=== PATIENT | female | born 1950 | race Caucasian/White ===

== ENCOUNTER 2024-09-04 14:52 | Outpatient (AMB) | payer OTHER, SELFPAY ==
--- NOTE | 2024-09-04 15:12 | A.OFFPC_ITS ---
Vital Signs 09/04/24 15:18 Height 5 ft 4 in Weight 168 lb BMI 28.8 BP 112/72 Blood Pressure Location Lt brachial Position Sitting Intake Visit Reasons: New Patient Healthcare Liaison Required: No Accompanied by: daughter in law Allergies No Known Allergies Allergy (Verified 09/04/24 15:48) Medication List - Last Reconciled 09/04/24 by Samaria Castaneda MD aspirin (Adult Low Dose Aspirin) 81 mg PO DAILY levothyroxine mcg PO meclizine 25 mg PO DAILY PRN paroxetine HCl ER mg PO DAILY simvastatin mg PO valsartan-hydrochlorothiazide 80-12.5 mg tabs PO DAILY Tobacco use date assessed: 09/04/24 Fall risk assessment: 1 Fall in past year Last assessed Fall Risk: 09/04/24 Dental Screening Dental Screen Date: 09/04/24 Did you have a dental visit in the last 12 months?: No Did you have a dental problem in the last 6 months where you did not have access to dental care?: No Was dental information given to patient?: Patient has dentist HPI HPI Comments History of Present Illness Details The patient is a 74-year-old female presenting for the evaluation of suspected skin cancer and routine health maintenance. She previously received treatment in [place] for a skin lesion that required burning. Recent symptoms include a new lesion growth on her nose, indicating a possible recurrence of skin cancer. She has a medical history significant for essential hypertension, managed with valsartan and hydrochlorothiazide; hyperlipidemia, treated with simvastatin; and hypothyroidism. Additionally, she experiences vertigo and depression with anxiety, managed with meclizine and paroxetine, respectively. [facility] Medical History (Updated 09/04/24 @ 16:01 by Samaria Castaneda MD) History of skin cancer Surgical History History of hysterectomy Family History Mother Diabetes Hypertension Father Hypertension Diabetes Sister Lung cancer Social History Housing: Apartment Alcohol intake: never Patient Tobacco Use Status: Former Tobacco user Tobacco use type: Cigarette e-Cigarette/Vaping Use: Never Used Second Hand Smoke Exposure: No service: No Current occupational status: unemployed Cognitive needs: No Hearing needs: No Vision needs: Yes Questionnaire PHQ-9 Over the last 2 weeks, how often have you been bothered by any of the following problems? 1. Little interest or pleasure in doing things: several days 2. Feeling down, depressed, or hopeless: not at all 3. Trouble falling or staying asleep, or sleeping too much: more than half the days 4. Feeling tired or having little energy: several days 5. Poor appetite or overeating: several days 6. Feeling bad about yourself - or that you are a failure or have let yourself or your family down: not at all 7. Trouble concentrating on things, such as reading the newspaper or watching television: more than half the days 8. Moving or speaking so slowly that other people could have noticed. Or the opposite - being so fidgety or restless that you have been moving around a lot more than usual: not at all 9. Thoughts that you would be better off or of hurting yourself in some way: not at all Total score: 7 Depression Screening Interpretation: Positive Depression Screening Follow-up: Existing condition, In treatment, Community Mental Health Worker F/U and Follow- up Visit Requested Depression Screening Done: Yes 19289 - PHQ-9 Billing: Yes Source: Developed by Drs. Dameon Vera, Marcia Sarabia, Paul Rushing and colleagues, with an educational pepper from [employer]. Thrive Questionnaire Date Thrive assessed: 09/02/24 I am a: Patient What is your living situation today?: I have a steady place to live Within the past 12 months, did the food you bought not last and you didn't have the money to get more?: Often true Within the past 12 months, did you worry whether your food would run out before you got money to buy more?: Often true Do you have trouble paying for medicines?: Yes Do you have trouble getting transportation to medical appointments?: No Do you have trouble paying your heating and electricity bill?: Yes Do you have trouble taking care of your child, family member or friend?: No Do you have trouble with day-to-day activities such as bathing, preparing meals, shopping, managing finances, etc.?: No Are you currently unemployed and looking for a job?: No Are you interested in more education?: No Please select the resources that you would like help with: Housing/Fpc, Food, Paying for medicine, Care for elder or disabled and Daily support Currently or been in a relationship where the following occur: No concerns reported THRIVE Score: 3 AUDIT C Alcohol Use Questionnaire (AUDIT-C) 1. How often do you have a drink containing alcohol?: Monthly or less 2. How many drinks containing alcohol do you have on a typical day when you are drinking?: 1 or 2 3. How often do you have six or more drinks on one occasion?: Never Total Score: 1 Score Reviewed/Action Taken: No BILL-7 AMB Questionnaire BILL-7 Date BILL - 7 assessed: 09/04/24 Feeling nervous, anxious, or on edge: 1 = Several days Not being able to stop or control worryin = Several days Worrying too much about different things: 1 = Several days Trouble relaxin = Several days Being so restless that it is hard to sit still: 0 = Not at all Becoming easily annoyed or irritable: 0 = Not at all Feeling afraid as if something awful might happen: 0 = Not at all Total BILL-7 score (0-4 normal; 5-9 mild; 10-14 moderate; 15-21 severe): 4 Source: Developed by Drs. Dameon Vera, Marcia Sarabia, Paul Rushing and colleagues, with an educational pepper from [employer] BILL-7 Assessment Billing BILL-7 Assessment Tool: BILL-7 Assessment 05575 Review of Systems Const All systems reviewed & are unremarkable except as noted in HPI and below Card Denies chest pain at rest, Denies chest pain with activity, Denies edema, Denies irregular heart rhythm, Denies claudication, Denies dyspnea, Denies dyspnea on exertion, Denies orthopnea, Denies paroxysmal nocturnal dyspnea and Denies slow heart rate Resp Denies cough, Denies dyspnea and Denies dyspnea on exertion Physical exam (Primary Care) Vital Signs: Last Vital Signs BP 112/72 09/04/24 15:18 BMI result Body Mass Index 28.8 Tobacco/Smoking Status: Tobacco use Status Tobacco use date assessed 09/04/24 09/04/24 15:27 Patient Tobacco Use Status Former Tobacco user 03/17/25 15:27 Tobacco use type Cigarette 09/04/24 15:27 e-Cigarette/Vaping Use Never Used 09/04/24 15:27 PHQ-9: PHQ-9 Score PHQ-9: Total score 7 09/04/24 16:06 Depression Screening Interpretation: Positive Depression Screening Follow-up: Existing condition, In treatment, Community Mental Health Worker F/U and Follow- up Visit Requested Thrive Assessment: Date of Thrive Assessment Date Thrive assessed 09/02/24 09/04/24 15:14 Currently or been in a relationship where the following occur: No concerns reported Resp Effort & Inspection: normal respiratory effort Auscultation: clear to auscultation bilaterally Cardio Jugular venous distension: no JVD Rate: regular rate Rhythm: regular rhythm Heart sounds: S1 normal heart sound present and S2 normal heart sound present Skin General skin exam: no rashes or lesions noted Extrem General: Yes full ROM Immunizations pneumoc 20-gallo conj-dip cr(PF) 0.5 mL IM syringe Performing Provider: Samaria Castaneda MD [facility] Administered by: YANELI Zuñiga on 09/04/24 16:06 Dose Route Admin Location Dispensed Lot Number Expiration Date AZC Ward Secretary 0.5 mL IM Left Deltoid 0.5 mL [id number] 10/19/25 [employer] VIS Given Date VIS Provided VIS Publication Date 09/04/24 Single Vaccine 21 Eligibility Eligibility Date Funding Source Not [facility] Eligible 09/04/24 Private Coding Level of Care Code New Pt Level 4 (10464) Complex EM visit Add On G2211 Diagnoses Mild recurrent major depression F33.0 Pure hypercholesterolemia E78.00 BPPV (benign paroxysmal positional vertigo) H81.10 History of skin cancer Z85.828 Hypothyroidism E03.9 Essential hypertension I10 Additional Codes BILL-7 Assessment Billing - BILL-7 Assessment Tool: BILL-7 Assessment 23107 ([id number]) PHQ-9 - 18472 - PHQ-9 Billing: Yes ([id number]) Time Spent (min) 23 Assessment & Plan Assessment & Plan (1) Mild recurrent major depression: Code(s): F33.0 - Major depressive disorder, recurrent, mild Category: Medical (2) Pure hypercholesterolemia: Code(s): E78.00 - Pure hypercholesterolemia, unspecified Category: Medical (3) BPPV (benign paroxysmal positional vertigo): Code(s): H81.10 - Benign paroxysmal vertigo, unspecified ear Category: Medical (4) History of skin cancer: Code(s): Z85.828 - Personal history of other malignant neoplasm of skin Category: Medical (5) Hypothyroidism: Code(s): E03.9 - Hypothyroidism, unspecified Category: Medical (6) Essential hypertension: Code(s): I10 - Essential (primary) hypertension Category: Medical Plan The patient is referred to dermatology to assess a suspected recurrent lesion on her nose previously treated for skin cancer. Chronic conditions such as essential hypertension, hyperlipidemia, and hypothyroidism will be continually managed with her existing medications. A series of fasting laboratory tests, including glucose and cholesterol levels, will monitor these conditions' status, allowing timely adjustment of therapy. Patient was informed and verbally consented to the use of an ambient scribe for clinic note documentation during this visit. I discussed the importance of seeing dermatology for the nasal lesion, emphasizing the necessity of ruling out a recurrence of skin cancer. I explained the need for fasting laboratory tests to assess current chronic conditions, emphasizing monitoring to guide medication adjustments. We reviewed the familial risk for diabetes and the patient's proactive blood sugar monitoring. The importance of maintaining medication adherence and regular health evaluations was reiterated. Orders: Orders Lipid Panel Today E78.5 - Hyperlipidemia, unspecified Comprehensive Met. Panel Today I10 - Essential (primary) hypertension Thyroid Stimulating Hormone Today E03.9 - Hypothyroidism, unspecified MM tomosynthesis screening BI Today Z12.31 - Encounter for screening mammogram for malignant neoplasm of breast XR DEXA axial skeleton Today Z78.0 - Asymptomatic menopausal state Pneumococcal 20 Immunization Today Z23 - Encounter for immunization Referrals Dermatology Referral Z85.828 - Personal history of other malignant neoplasm of skin Medications: New meclizine 25 mg PO DAILY PRN 90 tabs 0RF dizziness 90 days H81.10 - Benign paroxysmal vertigo, unspecified ear simvastatin 20 mg PO BEDTIME 90 tabs 1RF 90 days E78.00 - Pure hypercholesterolemia, unspecified aspirin (Adult Low Dose Aspirin) 81 mg PO DAILY 90 tabs 3RF 90 days levothyroxine 100 mcg PO DAILY 90 tabs 1RF 90 days paroxetine HCl ER 25 mg PO DAILY 90 tabs 1RF 90 days F33.0 - Major depressive disorder, recurrent, mild valsartan-hydrochlorothiazide 80-12.5 mg 1 tab PO DAILY 90 tabs 1RF 90 days Patient Instructions: - Follow up with dermatology for a comprehensive skin evaluation. - Have fasting lab tests as ordered to check cholesterol, glucose levels, and other organ functions. - Continue prescribed medications for hypertension, cholesterol, and hypothyroidism. - Monitor blood sugars regularly and report significant changes. - Arrange for a mammogram and bone density test as planned. - If any new symptoms or concerns arise before the next scheduled visit, reach out for an appointment.
[2024-09-04 15:18] VITALS: BP 112/72; BMI 28.8
--- OUTSIDE RECORDS SUMMARY | 2024-09-04 17:26 | XMS_ITS ---
Author Organization [facility] Address [address] [place] [address] Care Team Providers Care Groover And Striper Operator Name Role Phone [phone] REASON FOR VISIT f/up labs Medications Medication SIG (Take, Route, Fr equency, Duration) Notes Start Date End Date Status Simvastatin Unknown CVS Vitamin D3 Unkno wn Levothyroxine Sodium Unknown Diovan HCT Unknown Alendronate Sodium U nknown Encounters Encounter Location Date Provider Diagnosis [facility] [address] [place] [address] 12/13/2023 [facility] Plan Of Treatment No Information Progress Notes * AUGUSTAZOEFabricioisDOB:12/1949 (74 yo F)Acc No.[id number]:12/13/2023 Progress Notes Patient:?Yusra FERNANDEZ s Provider:?RAC[facility] :1950???Age:73 Y???Sex:Female D ate:12/13/2023 Phone: Address:[address] [place] [phone] Subjective: * Chief Complaints: * ???1. F/up labs. * Medical History:? * Medications:?Unknown Simvast atin , Unknown CVS Vitamin D3 , Unknown Levothyroxine Sodium , Unknown Diovan HCT , Unknown Alendronate Sodium Objective: * Vitals:? Assessment: Plan: * Treatment: * Billing Information: * Visit Code:? * Procedure Codes:? * Electronic signature of [facility] on 09/04/2024 at 05:26 PM EDT Sign off status: Pending * Provider:?[facility] Date:?0 12/13/2023 Generated for Baldemar breen/Simeon/Marilynitting on:?09/04/2024 05:26 PM EDT
--- OUTSIDE RECORDS SUMMARY | 2024-09-04 17:27 | XMS_ITS | Patient Health Record ---
Author Organization [facility] Address [address] [place] [address] Care Team Providers Care Vp Biology Name Role Phone [facility] Unavailable [phone] JESSE VELA Unavailable [phone] Allergies No Known Allergies Reason For Referral Reason Evaluate and treat Diagnosis 1 Hypertension, unspec ified type (I10) Referral Organization [facility] Prac yvonne Referring Provider First Name [facility] Referring Provider Last Name [facility] Referring Provider Speciality Multispeci alty Clinic or Group Practice Referred Provider Specialty Family Pract ice Referral Priority Routine Referral Appointment Date 11/29/2023 Medications Medication SIG (Take, Route, Frequency, Duration) Notes Start Date End Date Status Simvastatin Unknown [facility] Vitamin D3 Unkno wn Valsartan-hydroCHLOROthiazi de 80-12.5 MG 1 tablet Orally Once a day for 30 days 12/02/2023 Active Levothyroxine Sodium Unknown Diovan HCT Unknown Alendronate Sodium U nknown Social History Tobacco Use: Social History Observation Description Date Details (start date - stop date) Former Smoker NA - NA Tobacco Control (Standard) Question Answer Notes Tobacco use: Former smoker Problems Problem Type SNOMED Code ICD Code Onset Dates Problem Status W/U Status Risk Notes Problem [id number] Hypertension, unspecified type (I10) Active confirmed Vital Signs Height 63 in 11/29/2023 Patient Reported High Blood Presure Patient Reported Normal Temperature Weight 162 lbs 11/29/2023 Patient Reported High Blood Presure Patient Reported Normal Temperature BMI 28.69 kg/m2 11/29/2023 Patient Reported High Blood Presure Patient Reported Normal Temperature Encounters Encounter Location Date Provider Diagnosis [facility] [address] [place] [address] 11/29/2023 JESSE VELA Hypertension, unspecified type I10 and Medication refill Z76.0 [facility] [address] [place] [address] 12/02/2023 JESSE VELA Assessments Encounter Date Diagnosis (ICD Code) Assessment Notes Treatment Notes Treatment Clinical Notes Section Notes 11/29/2023 Medication refill (ICD-10 - Z76.0) 11/29/2023 Hypertension, unspecified type (ICD-10 - I10) TREATMENT PLAN: MEDICATION DENIED UNABLE TO LOCATE RECORDS Your medication refill request has been denied as we couldn't find documentation confirming your current usage of this medication. To expedite approval, please provide documentation from your prescribing physician outlining your need, supporting test results, and the pharmacy details. Once received, we can provide a limited supply until you're able to consult your regular physician.PATIENT EDUCATION: HYPERTENSION It's normal for blood pressure to go up and down throughout the day. But if it stays up, you have high blood pressure. Another name for high blood pressure is hypertension. For diagnosis, the top number may be 130 to 140 or higher. The bottom number may be 80 to 90 or higher. Despite what a lot of people think, high blood pressure usually doesn't cause headaches or make you feel dizzy or lightheaded. It usually has no symptoms. But it does increase your risk of stroke, heart attack, and other problems. You and your doctor will talk about your risks of these problems based on your blood pressure. Your doctor will give you a goal for your blood pressure. Your goal will be based on your health and your age. Lifestyle changes, such as eating healthy and being active, are always important to help lower blood pressure. You might also take medicine to reach your blood pressure goal. Follow-up care is a lyon part of your treatment and safety. Be sure to make and go to all appointments, and call your doctor if you are having problems. It's also a good idea to know your test results and keep a list of the medicines you take. How can you care for yourself at home? Medical treatment If you stop taking your medicine, your blood pressure will go back up. You may take one or more types of medicine to lower your blood pressure. Be safe with medicines. Take your medicine exactly as prescribed. Call your doctor if you think you are having a problem with your medicine. Talk to your doctor before you start taking aspirin every day. Aspirin can help certain people lower their risk of a heart attack or stroke. But taking aspirin isn't right for everyone, because it can cause serious bleeding. See your doctor regularly. You may need to see the doctor more often at first or until your blood pressure comes down. If you are taking blood pressure medicine, talk to your doctor before you take decongestants or anti-inflammatory medicine, such as ibuprofen. Some of these medicines can raise blood pressure. Learn how to check your blood pressure at home. Lifestyle changes Stay at a healthy weight. This is especially important if you put on weight around the waist. Losing even 10 pounds can help you lower your blood pressure. If your doctor recommends it, get more exercise. Walking is a good choice. Bit by bit, increase the amount you walk every day. Try for at least 30 minutes on most days of the week. You also may want to swim, bike, or do other activities. Avoid or limit alcohol. Talk to your doctor about whether you can drink any alcohol. Try to limit how much sodium you eat to less than 2,300 milligrams (mg) a day. Your doctor may ask you to try to eat less than 1,500 mg a day. Eat plenty of fruits (such as bananas and oranges), vegetables, legumes, whole grains, and low-fat dairy products. Lower the amount of saturated fat in your diet. Saturated fat is found in animal products such as milk, cheese, and meat. Limiting these foods may help you lose weight and also lower your risk for heart disease. Do not smoke. Smoking increases your risk for heart attack and stroke. If you need help quitting, talk to your doctor about stop-smoking programs and medicines. These can increase your chances of quitting for good. When should you call for help? Call 911 anytime you think you may need emergency care. This may mean having symptoms that suggest that your blood pressure is causing a serious heart or blood vessel problem. Your blood pressure may be over 180/120. For example, call 911 if: You have symptoms of a heart attack. These may include: Chest pain or pressure, or a strange feeling in the chest. Sweating. Shortness of breath. Nausea or vomiting. Pain, pressure, or a strange feeling in the back, neck, jaw, or upper belly or in one or both shoulders or arms. Lightheadedness or sudden weakness. A fast or irregular heartbeat. You have symptoms of a stroke. These may include: Sudden numbness, tingling, weakness, or loss of movement in your face, arm, or leg, especially on only one side of your body. Sudden vision changes. Sudden trouble speaking. Sudden confusion or trouble understanding simple statements. Sudden problems with walking or balance. A sudden, severe headache that is different from past headaches. You have severe back or belly pain. Do not wait until your blood pressure comes down on its own. Get help right away. Call your doctor now or seek immediate care if: Your blood pressure is much higher than normal (such as 180/120 or higher), but you don't have symptoms. You think high blood pressure is causing symptoms, such as: Severe headache. Blurry vision. Watch closely for changes in your health, and be sure to contact your doctor if: Your blood pressure measures higher than your doctor recommends at least 2 times. That means the top number is higher or the bottom number is higher, or both. You think you may be having side effects from your blood pressure medicine. 11/29/2023 Other Follow the treatment plan as indicated by the provider. Take any medications as prescribed. If you have any questions about your prescription, ask the pharmacist. Call 911 anytime you think you may need emergency care. For example, call if:You have severe trouble breathing.You have a seizure.Call your doctor now or seek immediate medical care if:You have trouble breathing.You have a fever with a stiff neck or a severe headache.You have pain or pressure in your chest or belly.You have a fever or cough that returns after getting better.You feel very sleepy, dizzy, or confused.You are not urinating.You have severe muscle pain.You have severe weakness, or you are unsteady.You have medical conditions that are getting worse.Watch closely for changes in your health, and be sure to contact your doctor if:You do not get better as expected.You are having a problem with your medicine. You participated in a Fasttrack Rx request, considered an asynchronous visit where you provide your symptoms and medical history, and a treatment plan is formulated based on your submission. A treatment plan and patient education were provided based on your submission. If symptoms persist or worsen, you should seek in-person care or call 911 immediately for further evaluation. Plan Of Treatment Pending Test Test Name Order Date COMPREHENSIVE METABOLIC PANEL (06733) CBC (INCLUDES DIFF/PLT) (6399) HEMOGLOBIN A1c (496) 11/29/2023 HCG, TOTAL, QL (8435) 11/29/2023 LIPID PANEL, STANDARD ([id number]) 11/29/2023 Insurance Providers Payer Name Payer Address Payer Phone Subscriber Number Group Number Insured Name Patient Relationship to Insured Coverage Start Date Coverage End Date [employer] F[employer] [address] [address] [place] [phone] [id number] Jazmine Fritz Self - patient is the insured Medical (General) History Medical History History ICD Code High blood pressure Last year Thyroid 5 years Osteoporosis 3 years
--- OUTSIDE RECORDS SUMMARY | 2024-09-04 17:27 | XMS_ITS ---
Author Organization [facility] Address [address] [place] [address] Care Team Providers Care Public Health Microbiologist Name Role Phone JESSE VELA [phone] Allergies No Known Allergies Reason For Referral Reason Evaluate and treat Diagnosis 1 Hypertension, unspec ified type (I10) Referral Organization [facility] Prac yvonne Referring Provider First Name [facility] Referring Provider Last Name [facility] Referring Provider Speciality Multispeci alty Clinic or Group Practice Referred Provider Specialty Family Pract ice Referral Priority Routine Referral Appointment Date 11/29/2023 REASON FOR VISIT Prescription Refill, Patient requesting service from promotional campaign rx_refill Medications Medication SIG (Take, Route, Fr equency, Duration) Notes Start Date End Date Status Alendronate Sodium A ctive Levothyroxine Sodium Active Diovan HCT Active Simvastatin Active [facility] Vitamin D3 Activ e Social History Tobacco Use: Social History Observation Description Date Details (start date - stop date) Former Smoker NA - NA Tobacco Control (Standard) Question Answer Notes Tobacco use: Former smoker Problems Problem Type SNOMED Code ICD Code Onset Dates Problem Status W/U Status Risk Notes Problem [id number] Hypertension, unspecified type (I10) Active confirmed Vital Signs Height 63 in 11/29/2023 Weight 162 lbs 11/29/2023 BMI 28.69 kg/m2 11/29/2023 Patient Reported High Blood PresurePatient Reported Normal Temperature Encounters Encounter Location Date Provider Diagnosis [facility] [address] [place] [address] 11/29/2023 JESSE VELA Hypertension, unspecified type I10 and Medication refill Z76.0 Assessments Encounter Date Diagnosis (ICD Code) Assessment Notes Treatment Notes Treatment Clinical Notes Section Notes 11/29/2023 Hypertension, unspecified type (ICD-10 - I10) [...] effects from your blood pressure medicine. 11/29/2023 Medication refill (ICD-10 - Z76.0) 11/29/2023 Other Follow the treatment plan as [...] immediately for further evaluation. Plan Of Treatment Treatment Notes Assessment Notes Hypertension, unspecified type TREATMENT PLAN: MEDICATION DENIED UNABLE TO LOCATE [...] side effects from your blood pressure medicine. Other Follow the treatment plan as indicated [...] are having a problem with your medicine. Pending Test Test Name Order Date COMPREHENSIVE METABOLIC PANEL (76884) CBC (INCLUDES DIFF/PLT) (6399) HEMOGLOBIN A1c (496) 11/29/2023 HCG, TOTAL, QL (8435) 11/29/2023 LIPID PANEL, STANDARD (7600) 11/29/2023 Referrals Referral Date Details 11/29/2023 11/29/2023, Evaluate and treat Next Appt Details Follow Up: PCP, prn, Reason: Progress Notes * Darryl FERNANDEZOB:12/1949 (73 yo F)Acc No.[id number]:11/29/2023 Patient:?Yusra FERNANDEZ Provider:?JESSE VELA MD :1950???Age:73 Y???Sex:Female D ate:11/29/2023 Phone: Address:[address] [place] [address], [address], [place], [place]-[phone] Subjective: * Chief Complaints: * ???Prescription RefillPatien t requesting service from promotional campaign rx_refill * HPI: ???TeleHealth Complaint History:? Reason for visit:?Requested: ? Valsartan-HCTZ, 80-12.5 mg, 30 days Reason: ? High blood pressure How Long: ? 2 years Side Effects: ? Prescriber: ? Dr. Mcleod. * ROS:?All Other Systems:?Review of Systems (ROS)?See HPI for details.? * Medical History:? * Surgical History:?Denies Pas t Surgical History * Hospitalization/Major Diagno stic Procedure:?Denies Past Hospitalization * Family History:? Cancer: Sibling? and Diabetes : Parent. * Social History:?Tobacco Use:?Tobacco Control (Standard)?Tobacco use:?Former smoker ???Drugs/Alcohol:?Do you drink alcohol?: No. * Medications:?TakingSimvastat in [facility] Vitamin D3 Levothyroxine Sodium Diovan HCT Alendronate Sodium Taking Simvastatin Taking [facility] Vitamin D3 Taking Levothyroxine Sodium Taking Diovan HCT Taking Alendronate Sodium * Allergies:?N.K.D.A.no[Allerg ies Verified] Objective: * Vitals:?Ht: 63 in, Wt:162lbs , BMI:28.69Index. Patient Reported High Blood Presure Patient Reported Normal Temperature. * Physical Examination:?Asynchronous visit, unable to assess. Assessment: * Assessment: 1.?Hypertension, unspecified type - I10 (Primary)?2.?Medication refill - Z76.0? Plan: * Treatment: 2.?Others? Notes: Follow the treatment plan as indicated by the provider. Take any medications as prescribed. If you have any questions about your prescription, ask the pharmacist. [id number] you think you may need emergency care. For example, call if:You have severe trouble breathing.You have a seizure.Call your doctor nowor seek immediate medical care if:You have trouble [...] expected.You are having a problem with your medicine.?? Clinical Notes:You participated in a Fasttrack Rx request, considered an asynchronous visit where you provide your symptoms and medical history, and a treatment plan is formulated based on your submission. A treatment plan and patient education were provided based on your submission. If symptoms persist or worsen, you should seek in-person care or call 911 immediately for further evaluation. ?? * Procedure Codes:?80070 LIPID [id number] HCG QL [id number] HGB [id number] CBC COMPLETE W/AUTO DIFF [id number] COMPREHEN METABOLIC PANELMPFEE Merchant / CC Processing [id number] Office Visit, Est Pt., Level 3, delivered asynchronous, Modifiers: GQ * Follow Up:?PCP, prn * Billing Information: * Visit Code:? * Procedure Codes:? 23116 LIPID PANEL. 04439 HCG QL SERUM. 67958 HGB A1C. 57216 CBC COMPLETE W/AUTO DIFF WBC. 97981 COMPREHEN METABOLIC PANEL. MPFEE Merchant / CC Processing Fee. [id number] Office Visit, Est Pt., Level 3, delivered asynchronous. Modifiers: GQ * Sign off status: Completed true * Provider:?JESSE VELA MD Date:?2023 Generated for Baldemar breen/Simeon/Karolyn on:?09/04/2024 05:27 PM EDT History and Physical Notes * Physical Examination Category Sub-Category Detail Notes Section Note s Asynchronous vi sit, unable to assess Consultation Request Notes Referral Date Referring Provider Referred Provider Not es 11/29/2023 [facility] , Evaluate and treat
--- OUTSIDE RECORDS SUMMARY | 2024-09-04 17:27 | XMS_ITS ---
Author Organization [facility] Address [address] [place] [address] Care Team Providers Care Package Line Operator Name Role Phone JESSE VELA [phone] REASON FOR VISIT proof of rx Medications Medication SIG (Take, Route, Frequency, Duration) Notes Start Date End Date Status Valsartan-hydroCHLOROthiaz opal 80-12.5 MG 1 tablet Orally Once a day for 30 days 12/02/2023 Active Encounters Encounter Location Date Provider Diagnosis [facility] [address] [place] [address] 12/02/2023 JESSE VELA Plan Of Treatment Medication Medication Name Sig Start Date Stop Date Notes Valsartan-hydroCHLOROthiazid e 80-12.5 MG 1 tablet Orally Once a day for 30 days 12/02/2023 Progress Notes * Fabricio MERINOisDOB:12/1949 (73 yo F)Acc No.[id number]:12/02/2023 Patient:?Yusra MERINO :1950???Age:73 Y???Sex:Female Phone: Address:[address] [place] [address], [address] * Refills? Start Valsartan-hydroCHLOROthiazide Tablet, 80-12.5 MG, Orally, 30, 1 tablet, Once a day, 30 days * true * Date:? Generated for Baldemar breen/Simeon/eTransmitting on:?09/04/2024 05:27 PM EDT
== END 2024-09-04 16:07 | disposition home or self-care (01) ==
LOC: HO.HMCH 14:53
PROVIDERS: Visit Provider Internal Medicine
DX: F33.0 Major depressive disorder, recurrent, mild (principal); E78.00 Pure hypercholesterolemia, unspecified; H81.10 Benign paroxysmal vertigo, unspecified ear; Z85.828 Personal history of other malignant neoplasm of skin; E03.9 Hypothyroidism, unspecified; I10 Essential (primary) hypertension; Z23 Encounter for immunization

== ENCOUNTER → 2024-09-04 14:52 | Outpatient (BNVA) | payer OTHER, SELFPAY | PROVIDERS: Visit Provider Internal Medicine | DX: F33.0 Major depressive disorder, recurrent, mild (principal); Z23 Encounter for immunization; E78.00 Pure hypercholesterolemia, unspecified; H81.10 Benign paroxysmal vertigo, unspecified ear; E03.9 Hypothyroidism, unspecified; I10 Essential (primary) hypertension; Z85.828 Personal history of other malignant neoplasm of skin | CPT/HCPCS: 90471; 90677; 96127 ==

== ENCOUNTER 2024-09-12 08:41 | Outpatient (REF) | payer OTHER, SELFPAY ==
[2024-09-12 10:39] LABS: Alanine Aminotransferase 16 U/L (0-31); Alkaline Phosphatase 84 U/L (39-117); Anion Gap 9 (12-20); Aspartate Amino Transferase 23 U/L (5-31); Bilirubin Total 0.5 mg/dL (0.0-1.0); Blood Urea Nitrogen 19 mg/dL (9-16); Calcium 9.4 mg/dL (8.4-10.2); Carbon Dioxide 31 mmol/L (22-29); Chloride 107 mmol/L (96-108); Cholesterol 166 mg/dL (<200); Estimated Glomerular Filt Rate > 60; Glucose Random 95 mg/dL (60-115); HDL Cholesterol 43 mg/dL (>40); LDL Cholesterol Calculated 108 mg/dL (<100); Potassium 3.6 mmol/L (3.3-5.1); Sodium 143 mmol/L (135-145); Triglycerides 79 mg/dL (<150)
[2024-09-12 10:48] LABS: Thyroid Stimulating Hormone 3.44 uIU/mL (0.32-4.0)
== END 2024-09-12 08:42 | disposition home or self-care (01) ==
LOC: HO.LAB 08:41
PROVIDERS: PCP Internal Medicine; Visit Provider Internal Medicine
DX: E78.5 Hyperlipidemia, unspecified (principal); I10 Essential (primary) hypertension; E03.9 Hypothyroidism, unspecified
CPT/HCPCS: 36415; 80053; 80061; 84443

== ENCOUNTER 2025-01-10 14:41 | Outpatient (REF) | payer OTHER, SELFPAY ==
--- NOTE | ~2025-01-10 | XR_ITS ---
EXAMINATION: XR KNEE 1-2 VIEWS BILATERAL CLINICAL INFORMATION: M25.561 - Pain in right knee COMPARISON: None available. TECHNIQUE: Two views of the right and left knee. FINDINGS: No acute fracture. No dislocation. Moderate degree of degenerative changes in the medial femorotibial compartment, right worse than left. No suprapatellar joint effusion. XR/XR Knee Ariel 1or 2V IMPRESSION: Moderate degree of degenerative changes of the medial femorotibial compartment, right greater than left. Electronically signed by: Paul Corado MD 01/10/2025 04:45 PM EDT
[2025-01-10 17:28] LABS: Thyroid Stimulating Hormone 3.02 uIU/mL (0.32-4.0)
== END 2025-01-10 14:42 | disposition home or self-care (01) ==
LOC: HO.XRAY 14:41
PROVIDERS: PCP Internal Medicine; Visit Provider Internal Medicine
DX: Z00.00 Encounter for general adult medical examination without abnormal findings (principal); F33.0 Major depressive disorder, recurrent, mild; H10.9 Unspecified conjunctivitis; M25.561 Pain in right knee; M25.562 Pain in left knee; M79.641 Pain in right hand; M79.642 Pain in left hand; B35.1 Tinea unguium; E03.9 Hypothyroidism, unspecified
CPT/HCPCS: 36415; 73560; 84443

== ENCOUNTER 2025-01-10 14:41 | Outpatient (AMB) | payer OTHER, SELFPAY ==
--- OUTSIDE RECORDS SUMMARY | 2023-12-13 09:30 | XMS_ITS ---
Author Organization [facility] Address [address] [place] [address] Care Team Providers Care Health Specialist Name Role Phone [facility] [phone] REASON FOR VISIT f/up labs Medications Medication SIG (Take, Route, Fr equency, Duration) Notes Start Date End Date Status Simvastatin Unknown CVS Vitamin D3 Unkno wn Levothyroxine Sodium Unknown Diovan HCT Unknown Alendronate Sodium U nknown Encounters Encounter Location Date Provider Diagnosis [facility] [address] [place] [address] 12/13/2023 [facility] Plan Of Treatment No Information Progress Notes * Fabricio FERNANDEZisDOB:12/1949 (74 yo F)Acc No.[id number]:12/13/2023 Progress Notes Patient: Jazmine SELLERS Provider: Julianne ARMANDO :1950 A ge:73 Y S ex:Female Date:12/13/2023 Phone: Address:[address] [place], [place] [phone] Subjective: * Chief Complaints: * 1 . F/up labs. * Medical History: * Medications: U nknown Simvastatin , Unknown CVS Vitamin D3 , Unknown Levothyroxine Sodium , Unknown Diovan HCT , Unknown Alendronate Sodium Objective: * Vitals: Assessment: Plan: * Treatment: * Billing Information: * Visit Code: * Procedure Codes: * Electronic signature of [facility] on 01/10/2025 at 03:12 PM EDT Sign off status: Pending * Provider: Julianne ARMANDO Date: 12/13/2023 Generated for Baldemar breen/Simeon/Marilynitting on: 0 01/10/2025 03:12 PM EDT
--- NOTE | 2025-01-10 14:55 | A.OFFPC_ITS ---
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 Accompanied by: Family/Other Allergies No Known Allergies Allergy (Verified 01/10/25 15:31) Medication List - Last Reconciled 01/10/25 by Samaria Castaneda MD aspirin (Adult Low Dose Aspirin) 81 mg PO DAILY 90 days levothyroxine 100 mcg PO DAILY 90 days meclizine 25 mg PO DAILY PRN 90 days paroxetine HCl ER 25 mg PO DAILY 90 days simvastatin 20 mg PO BEDTIME 90 days valsartan-hydrochlorothiazide 80-12.5 mg 1 tab PO DAILY 90 days Tobacco use date assessed: 09/04/24 Fall risk assessment: No Falls in past year Last assessed Fall Risk: 01/10/25 Dental Screening Dental Screen Date: 09/04/24 HPI HPI Comments History of Present Illness Details The patient is a 74-year-old female presenting for her physical exam. The patient has a history of essential hypertension, currently managed with valsartan and hydrochlorothiazide. Her blood pressure has been well controlled with this regimen. She also reports osteoarthritis, particularly affecting her right knee, which has been a source of discomfort. The patient has been advised to use topical treatments for symptom relief. The patient has a history of hypothyroidism, which is monitored regularly. Her thyroid function was last checked in August and was within normal limits. In terms of preventative care, the patient has a mammogram scheduled for January 23 and a bone densitometry appointment on the same day. These screenings are part of her routine health maintenance. [facility] Medical History (Updated 01/10/25 @ 15:47 by Samaria Castaneda MD) History of skin cancer Surgical History History of hysterectomy Family History Mother Diabetes Hypertension Father Hypertension Diabetes Sister Lung cancer Social History Housing: Apartment Alcohol intake: never Patient Tobacco Use Status: Former Tobacco user Tobacco use type: Cigarette e-Cigarette/Vaping Use: Never Used Second Hand Smoke Exposure: No service: No Current occupational status: unemployed Cognitive needs: No Hearing needs: No Vision needs: Yes Questionnaire Thrive Questionnaire Date Thrive assessed: 09/02/24 I am a: Patient What is your living situation today?: I have a steady place to live Within the past 12 months, did the food you bought not last and you didn't have the money to get more?: Often true Within the past 12 months, did you worry whether your food would run out before you got money to buy more?: Often true Do you have trouble paying for medicines?: Yes Do you have trouble getting transportation to medical appointments?: No Do you have trouble paying your heating and electricity bill?: Yes Do you have trouble taking care of your child, family member or friend?: No Do you have trouble with day-to-day activities such as bathing, preparing meals, shopping, managing finances, etc.?: No Are you currently unemployed and looking for a job?: No Are you interested in more education?: No Currently or been in a relationship where the following occur: No concerns reported THRIVE Score: 3 BILL-7 AMB Questionnaire BILL-7 Date BILL - 7 assessed: 09/04/24 Source: Developed by Drs. Dameon Vera, Marcia Sarabia, Paul Rushing and colleagues, with an educational pepper from [employer]. Review of Systems Const All systems reviewed & are unremarkable except as noted in HPI and below Card Denies chest pain at rest, Denies chest pain with activity, Denies edema, Denies irregular heart rhythm, Denies claudication, Denies dyspnea, Denies dyspnea on exertion, Denies orthopnea, Denies paroxysmal nocturnal dyspnea and Denies slow heart rate Resp Denies cough, Denies dyspnea and Denies dyspnea on exertion GI Denies abdominal pain, Denies change in bowel habits, Denies excessive flatus, Denies nausea and Denies vomiting Denies urinary incontinence, Denies urinary hesitancy and Denies urinary urgency Musc Denies abnormal gait, Denies atrophy, Denies deformity and Denies limited range of motion Skin/Breast Denies bleeding lesions, Denies changing lesions and Denies rash Neuro Denies abnormal gait and Denies lack of coordination Physical exam (Primary Care) Vital Signs: Last Vital Signs BP 132/82 01/10/25 14:56 BMI result Body Mass Index 29.0 Tobacco/Smoking Status: Tobacco use Status Tobacco use date assessed 09/04/24 01/10/25 14:59 Patient Tobacco Use Status Former Tobacco user 01/10/25 14:59 Tobacco use type Cigarette 01/10/25 14:59 e-Cigarette/Vaping Use Never Used 01/10/25 14:59 Thrive Assessment: Date of Thrive Assessment Date Thrive assessed 09/02/24 01/10/25 14:59 Currently or been in a relationship where the following occur: No concerns reported HENMI Head: Yes normal to inspection, Yes normocephalic and Yes atraumatic Ears: external ears normal Eyes General: appearance normal, both eyes and all related structures Eyelids: Yes eyelids normal Conjunctivae: conjunctivae normal Neck Neck: Yes normal visual inspection and Yes supple Resp Effort & Inspection: normal respiratory effort Auscultation: clear to auscultation bilaterally Cardio Jugular venous distension: no JVD Rate: regular rate Rhythm: regular rhythm Heart sounds: S1 normal heart sound present and S2 normal heart sound present GI Inspection: Yes normal to inspection Palpation (GI): Soft to palpation and nontender Auscultation: normal bowel sounds Skin General skin exam: no rashes or lesions noted Nails: discolored Neuro General: no focal motor deficits Extrem General: Yes full ROM Right lower extremity: knee Details: tenderness Left lower extremity: knee Details: tenderness Psych Appearance: grossly normal Coding Level of Care Code Est Pt Level 4 (50750) Est Pt Prev Care >65y(19598) Diagnoses Physical exam Z00.00 Mild recurrent major depression F33.0 Conjunctivitis H10.9 Bilateral knee pain M25.561; M25.562 Bilateral hand pain M79.641; M79.642 Onychomycosis B35.1 Time Spent (min) 40 Assessment & Plan Assessment & Plan (1) Physical exam: Code(s): Z00.00 - Encounter for general adult medical examination without abnormal findings Category: Medical (2) Mild recurrent major depression: Code(s): F33.0 - Major depressive disorder, recurrent, mild Category: Medical (3) Conjunctivitis: Code(s): H10.9 - Unspecified conjunctivitis Category: Medical (4) Bilateral knee pain: Code(s): M25.561 - Pain in right knee; M25.562 - Pain in left knee Category: Medical (5) Bilateral hand pain: Code(s): M79.641 - Pain in right hand; M79.642 - Pain in left hand Category: Medical (6) Onychomycosis: Code(s): B35.1 - Tinea unguium Category: Medical Plan The management plan includes continued use of valsartan and hydrochlorothiazide for hypertension, as the patient's blood pressure is well controlled with this regimen. For osteoarthritis, the patient is advised to use topical treatments to alleviate knee discomfort. Regular monitoring of thyroid function is recommended, with the next check to be scheduled as needed. Preventative care includes attending the scheduled mammography and bone densitometry appointments on January 23. Patient was informed and verbally consented to the use of an ambient scribe for clinic note documentation during this visit. During the visit, we discussed the importance of maintaining blood pressure control with the current medication regimen and the use of topical treatments for osteoarthritis symptoms. We also reviewed the need for regular thyroid function monitoring and the upcoming preventative screenings, including mammography and bone densitometry. Orders: Orders Thyroid Stimulating Hormone Today E03.9 - Hypothyroidism, unspecified XR Knee Ariel 1or 2V Today M25.561 - Pain in right knee, M25.562 - Pain in left knee OT Evaluation and Treatment Today M79.641 - Pain in right hand, M79.642 - Pain in left hand Medications: New tobramycin 0.3% 1 drp ophthalmic (eye) Q4H 5 mL 0RF 7 days H10.9 - Unspecified conjunctivitis terbinafine HCl 250 mg PO DAILY 90 tabs 0RF 90 days B35.1 - Tinea unguium Patient Instructions: - Continue taking valsartan and hydrochlorothiazide as prescribed. - Use topical treatments for knee discomfort as needed. - Attend scheduled mammography and bone densitometry appointments on January 23. - Schedule regular thyroid function tests as advised.
[2025-01-10 14:56] VITALS: BP 132/82; BMI 29.0
== END 2025-01-10 15:48 | disposition home or self-care (01) ==
LOC: HO.HMCH 14:41
PROVIDERS: PCP Internal Medicine; Visit Provider Internal Medicine
DX: Z00.00 Encounter for general adult medical examination without abnormal findings (principal); F33.0 Major depressive disorder, recurrent, mild; H10.9 Unspecified conjunctivitis; M25.561 Pain in right knee; M25.562 Pain in left knee; M79.641 Pain in right hand; M79.642 Pain in left hand; B35.1 Tinea unguium

== ENCOUNTER → 2025-01-10 16:07 | Outpatient (BNV) | payer OTHER, SELFPAY | PROVIDERS: PCP Internal Medicine; Visit Provider Radiology Body Imaging | DX: M17.0 Bilateral primary osteoarthritis of knee (principal) | CPT/HCPCS: 73560 ==

== ENCOUNTER 2025-01-23 11:47 | Outpatient (REF) | payer OTHER, SELFPAY ==
--- OUTSIDE RECORDS SUMMARY | 2023-12-13 09:30 | XMS_ITS ---
Author Organization [facility] Address [address] [address] Care Team Providers Care Sales Representative Groceries Name Role Phone [facility] [phone] REASON FOR VISIT f/up labs Medications Medication SIG (Take, Route, Fr equency, Duration) Notes Start Date End Date Status Simvastatin Unknown CVS Vitamin D3 Unkno wn Levothyroxine Sodium Unknown Diovan HCT Unknown Alendronate Sodium U nknown Encounters Encounter Location Date Provider Diagnosis [facility] [address] [place] [address] 12/13/2023 [facility] Plan Of Treatment No Information Progress Notes * Fabricio FERNANDEZisDOB:12/1949 (74 yo F)Acc No.[id number]:12/13/2023 Progress Notes Patient: Jazmine SELLERS Provider: Julianne ARMANDO :1950 A ge:73 Y S ex:Female Date:12/13/2023 Phone: Address:[address] [place], [place] [phone] Subjective: * Chief Complaints: * 1 . F/up labs. * Medical History: * Medications: U nknown Simvastatin , Unknown CVS Vitamin D3 , Unknown Levothyroxine Sodium , Unknown Diovan HCT , Unknown Alendronate Sodium Objective: * Vitals: Assessment: Plan: * Treatment: * Billing Information: * Visit Code: * Procedure Codes: * Electronic signature of [facility] on 01/23/2025 at 12:38 PM EDT Sign off status: Pending * Provider: Julianne ARMANDO Date: 12/13/2023 Generated for Baldemar breen/Simeon/Marilynitting on: 0 01/23/2025 12:38 PM EDT
--- NOTE | ~2025-01-23 | MM_ITS ---
EXAMINATION: DXA BONE DENSITY AXIAL HISTORY: Z78.0 - Asymptomatic menopausal state TECHNIQUE: Synfora Dual energy absorptiometry (DEXA) of the lumbar spine, total left hip, and femoral neck was performed. COMPARISON: There are no prior studies for comparison. FINDINGS: The bone mineral density of the lumbar spine is 0.988 g/cm2, corresponding to a T-score of -1.6, and a Z-score of -0.1. This is indicative of osteopenia. The bone mineral density of the left total hip is 0.860 g/cm2, corresponding to a T-score of -1.2, and a Z-score of 0.4. This is indicative of osteopenia. The bone mineral density of the left femoral neck is 0.851 g/cm2, corresponding to a T-score of -1.3, and a Z-score of 0.5. This is indicative of osteopenia. FRACTURE RISK: The FRAX index suggests a risk of major osteoporotic fracture of 6.5%, and of hip fracture 1.3%. MM/XR DEXA axial skeleton IMPRESSION: Based on bone mineral density, and according to World Health Organization (WHO) criteria, the diagnosis is consistent with osteopenia. Statistically, 68% of repeat scans fall within 1 SD (+/- 0.010 g/cm2 for AP spine L1-L4) and 1 SD (+/- 0.012 g/cm2 for femur total) FRAX is a trademark of the [employer] [place] for Metabolic Bone Disease, a World Health Organization (WHO) Collaborating Center. Electronically signed by: Dameon Harris MD 01/23/2025 12:38 PM EDT
== END 2025-01-23 11:48 | disposition home or self-care (01) ==
LOC: HO.MAMMO 11:47
PROVIDERS: PCP Internal Medicine; Visit Provider Internal Medicine
DX: Z12.31 Encounter for screening mammogram for malignant neoplasm of breast (principal); Z13.820 Encounter for screening for osteoporosis; Z78.0 Asymptomatic menopausal state
CPT/HCPCS: 77063; 77067; 77080

== ENCOUNTER → 2025-01-23 11:51 | Outpatient (BNV) | payer OTHER, SELFPAY | PROVIDERS: PCP Internal Medicine; Visit Provider Radiology Diagnostic Radiology | DX: E28.39 Other primary ovarian failure (principal) | CPT/HCPCS: 77080 ==

== ENCOUNTER 2025-02-14 14:47 | Outpatient (AMB) | payer OTHER, SELFPAY ==
--- OUTSIDE RECORDS SUMMARY | 2023-12-13 09:30 | XMS_ITS ---
Author Organization [facility] Address [address] [place] [address] Care Team Providers Care Supervisor Paper Machine Name Role Phone [facility] [phone] REASON FOR VISIT f/up labs Medications Medication SIG (Take, Route, Fr equency, Duration) Notes Start Date End Date Status Simvastatin Unknown CVS Vitamin D3 Unkno wn Levothyroxine Sodium Unknown Diovan HCT Unknown Alendronate Sodium U nknown Encounters Encounter Location Date Provider Diagnosis [facility] [address] [place] [address] 12/13/2023 [facility] Plan Of Treatment No Information Progress Notes * Fabricio FERNANDEZisDOB:12/1949 (74 yo F)Acc No.[id number]:12/13/2023 Progress Notes Patient: Jazmine SELLERS Provider: Julianne ARMANDO :1950 A ge:73 Y S ex:Female Date:12/13/2023 Phone: Address:[address] [place], [place] [phone] Subjective: * Chief Complaints: * 1 . F/up labs. * Medical History: * Medications: U nknown Simvastatin , Unknown CVS Vitamin D3 , Unknown Levothyroxine Sodium , Unknown Diovan HCT , Unknown Alendronate Sodium Objective: * Vitals: Assessment: Plan: * Treatment: * Billing Information: * Visit Code: * Procedure Codes: * Electronic signature of [facility] on 02/14/2025 at 04:08 PM EDT Sign off status: Pending * Provider: Julianne ARMANDO Date: 12/13/2023 Generated for Baldemar breen/Simeon/Karolyn on: 0 02/14/2025 04:08 PM EDT
--- NOTE | 2025-02-14 14:51 | A.OFFVIS_ITS ---
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 Patient reports pain began 9-10 years ago, history of osteoarthritis. Patient complains of pain on the posterior aspect of the knee. She is not taking any pain at this time. She has not tried injections, PT, or bracing. Denies any known injuries or surgeries to the right knee. 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 Patient reports pain began 9-10 years ago, history of osteoarthritis. Patient complains of pain on the posterior aspect of the knee. She is not taking any pain at this time. She has not tried injections, PT, or bracing. Denies any known injuries or surgeries to the right knee. [facility] Medical History History of skin cancer Surgical History History of hysterectomy Family History Mother Diabetes Hypertension Father Hypertension Diabetes Sister Lung cancer Social History Housing: Apartment Alcohol intake: never Patient Tobacco Use Status: Former Tobacco user Tobacco use type: Cigarette e-Cigarette/Vaping Use: Never Used Second Hand Smoke Exposure: No service: No Current occupational status: unemployed Cognitive needs: No Hearing needs: No Vision needs: Yes Review of Systems Const All systems reviewed & are unremarkable except as noted in HPI and below Physical Exam Vital Signs: BMI result Body Mass Index 27.8 Extrem Other: Patient's right knee swollen to inspection, swelling consistent with joint effusion No erythema, ecchymosisnoted No lacerations, abrasions, open areas No evidence of infection Patient reports mild tenderness to palpation of the medial joint line of the right knee No tenderness to palpation of the lateral joint line, quad or patellar tendon, posterior knee Patient is able to extend the knee fully and is able to flex to approximately 100 degrees No laxity with varus and valgus testing, negative anterior drawer Negative Rebecca's on the right Distal sensation intact Capillary refill brisk Office Procedures AMB Joint Injection/Aspiration Joint Injection/Aspiration Primary Site: right knee Prep: site was prepped using aseptic technique and ethochloride spray was applied Injected: 40 mg of, DepoMedrol, with 4 mL of, 1% plain lidocaine and 0.25% bupivacaine Approach Used: anterolateral Procedure: The patient tolerated the procedure well and there was some relief with the local anesthesia Coding - Large joint Procedure code (CPT) selection complete Results Reviewed Results Reviewed: X-rays obtained in the office today and independently reviewed by me, Tylor Bennett PA-C, demonstrate moderate to severe osteoarthritis of bilateral knees, worst in the right knee medial compartment. Assessment & Plan Assessment & Plan (1) Osteoarthritis of right knee: Code(s): M17.11 - Unilateral primary osteoarthritis, right knee Category: Medical Plan 1. Osteoarthritis of right knee Patient is educated about this condition Patient is educated on the treatment options available Patient would like to proceed with steroid injection at this time The risks and benefits of a steroid injection including but not limited to risk of damage to blood vessels, nerves, tendons, infection, skin bleaching, failure to improve symptoms, increased pain, and possible need for further injections or other intervention were discussed with the patient and the patient wishes to proceed with the steroid injection. Once consent was obtained, I aseptically prepped the area over the anterolateral joint line of the right knee. I then injected right knee with a combination of 40 mg of dexamethasone and 8 mL of 1% lidocaine. The patient tolerated the procedure well with no complications. If the patient continues to experience symptoms over the following few weeks or months, they can make an appointment to return and discuss alternative treatment measures, such as physical therapy. Follow-up prn Coding Level of Care Code New Pt Level 3 (72424) Diagnoses Osteoarthritis of right knee M17.11 CPT Codes Coding - Large joint: 75369 - Large joint ([id number])
[2025-02-14 14:52] VITALS: BMI 27.8
--- OUTSIDE RECORDS SUMMARY | 2025-02-14 16:09 | XMS_ITS | Patient Health Record ---
Author Organization [facility] Address [address] [place] [address] Support Name Relationship Address Phone Jazmine Merino Guarantor Unknown Unavail able Allergies No Known Allergies Reason For Referral No Information Medications Medication SIG (Take, Route, Frequency, Duration) Notes Start Date End Date Status Simvastatin Unknown [facility] Vitamin D3 Unkno wn Valsartan-hydroCHLOROthiazi de 80-12.5 MG 1 tablet Orally Once a day; Duration: 30 days 12/02/2023 Active Levothyroxine Sodium Unknown Diovan HCT Unknown Alendronate Sodium U nknown Social History Tobacco Use: Social History Observation Description Date Details (start date - stop date) Former Smoker NA - NA Tobacco Control (Standard) Question Answer Notes Tobacco use: Former smoker Problems Problem Type SNOMED Code ICD Code Onset Dates Problem Status W/U Status Risk Notes Problem Hypertension, unspecified type (I10) Active confirmed Plan Of Treatment Pending Test Test Name Order Date COMPREHENSIVE METABOLIC PANEL (59050) CBC (INCLUDES DIFF/PLT) (6399) HEMOGLOBIN A1c (496) 11/29/2023 HCG, TOTAL, QL (8435) 11/29/2023 LIPID PANEL, STANDARD ([id number]) 11/29/2023 Insurance Providers Payer Name Payer Address Payer Phone Subscriber Number Group Number Insured Name Patient Relationship to Insured Coverage Start Date Coverage End Date [employer] F[employer] [address] [address] [place] [phone] [id number] Jazmine Fritz Self - patient is the insured Medical (General) History Medical History History ICD Code High blood pressure Last year Thyroid 5 years Osteoporosis 3 years
== END 2025-02-14 15:28 | disposition home or self-care (01) ==
LOC: HO.HOS 14:48
PROVIDERS: PCP Internal Medicine
DX: M17.11 Unilateral primary osteoarthritis, right knee (principal)
CPT/HCPCS: 20610; 99203

== ENCOUNTER → 2025-02-14 14:47 | Outpatient (BNVA) | payer OTHER, SELFPAY | PROVIDERS: PCP Internal Medicine | DX: M17.11 Unilateral primary osteoarthritis, right knee (principal) | CPT/HCPCS: 20610; J0665; J1100; J2003 ==